=== PATIENT | female | born 2005 | race Caucasian/White ===

== ENCOUNTER 2024-09-05 18:23 | Emergency (ER) | payer SELFPAY ==
[~2024-09-05] VITALS: Ht 157.5 cm; Wt 59.0 kg
[2024-09-05 18:27] VITALS: TEMP 99
[2024-09-05 18:53] VITALS: BP 137/87; O2SAT 98
[2024-09-05] MEDS ORDERED: ACETAMINOPHEN ES 500 MG TABLET ONE (18:53)
[2024-09-05] MEDS: ACETAMINOPHEN ES 500 MG TABLET PO ONE (19:01)
== END 2024-09-05 19:12 | disposition left against medical advice (07) ==
LOC: ER 18:28
DX: S00.83XA Contusion of other part of head, initial encounter (principal); S00.531A Contusion of lip, initial encounter; G40.909 Epilepsy, unspecified, not intractable, without status epilepticus; X58.XXXA Exposure to other specified factors, initial encounter; Y93.89 Activity, other specified; Y92.89 Other specified places as the place of occurrence of the external cause; Y99.8 Other external cause status